=== PATIENT | female | born 1965 | race African-American/Black ===

== ENCOUNTER 2024-10-04 13:29 | Outpatient (AMB) | payer OTHER, SELFPAY ==
[2024-10-04 14:40] VITALS: BMI 21.0
--- NOTE | 2024-10-04 14:40 | A.SPINEOV_ITS ---
Vital Signs 10/04/24 14:40 Height 5 ft 6 in Weight 130 lb BMI 21.0 Intake Visit Reasons: Neck pain usman hand pain and numbness Intake Note: Ms. Becker is here today c/o neck pain and numbness also bilateral hand pain. 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 Allergies acetaminophen [From Vicodin] Allergy (Mild, Verified 10/04/24 14:46) Rash hydrocodone [From Vicodin] Allergy (Mild, Verified 10/04/24 14:46) Rash Penicillins Allergy (Mild, Verified 10/04/24 14:46) Rash Sulfa (Sulfonamide Antibiotics) Allergy (Mild, Verified 10/04/24 14:46) Rash Physical Exam Vital Signs: BMI result Body Mass Index 21.0 Assessment & Plan Assessment & Plan (1) Bilateral cervical radiculopathy: Code(s): M54.12 - Radiculopathy, cervical region Category: Medical Plan Dear colleague Thank you for referring Carmen Becker to the office today with a chief complaint of bilateral arm pain, left more than right.. HPI: This pleasant 59-year-old female is known with cervical radiculopathy for prolonged period of time. Originally, it was always located on the right side. She received corticosteroid injections in the C7 area that would help. In March of 2024 the symptoms became more consistent and moved towards the left side. Specifically, she states that she has radiating pain into the triceps area that then goes to the dorsum of her lower arm into the whole hand. The pain is associated with numbness of the lateral side of the proximal part of the arm. The same symptoms are intermittently present on the right side. As stated, it radiates into her hand but originally it was mostly affected the 4th digit. She denies weakness. Recent injections were no longer successful. Physical therapy was not helpful nor are [id number] medications PMH: Hypertension, repair right clavicular fracture Medications: Losartan Allergies: Sulfa drugs, Demerol, penicillin, Vicodin, naproxen, lisinopril Social history: . Employed. Nonsmoker Physical Exam: Pleasant female. There is hypoesthesia of the lateral part of left upper arm. Motor exam is intact as well as reflexes. No pathological refl exes. Radiological Studies: MRI done at [place] on 09/08/2024 shows multilevel degenerative disc disease and foraminal stenosis. However, the C6-7 level is the only level where there is bilateral severe foraminal stenosis compressing the bilateral C7 nerve roots. Impression/Plan: This patient is suffering from a bilateral C7 radiculopathy that is explained by the bilateral severe C7 foraminal stenosis caused by degenerative disc disease on MRI. Conservative treatment failed and the symptoms are severe enough to undergo a surgical intervention. Therefore I offered her a C6-7 anterior diskectomy and fusion. She is scheduled for December 19, 2024. Thank you for allowing me to participate in your patients care. total time spent was 50 minutes in counseling ,coordination of plan, personal review of imaging, surgical decision making and subsequent plan Jeffrey Yee MD, PhD Spine Fellowship Trained Neurosurgeon Director, [facility] Coding Level of Care Code New Pt Level 4 (00236) Diagnoses Bilateral cervical radiculopathy M54.12
== END 2024-10-04 16:08 | disposition home or self-care (01) ==
PROVIDERS: PCP Internal Medicine; Referring Provider Physician Assistant; Visit Provider Neurological Surgery
DX: M54.12 Radiculopathy, cervical region (principal)
CPT/HCPCS: 99204

== ENCOUNTER → 2024-10-04 13:29 | Outpatient (BNVA) | payer OTHER, SELFPAY | PROVIDERS: PCP Internal Medicine; Referring Provider Physician Assistant; Visit Provider Neurological Surgery ==

== ENCOUNTER 2024-12-19 06:00 | Day surgery (SDC) | payer OTHER, SELFPAY ==
[2024-12-03 10:12] VITALS: BP 142/84; PULSE 84; RESP 18; O2SAT 100; BMI 21.6
--- NOTE | 2024-12-03 10:23 | HO.ANESPROP2 ---
Documented by User: Teresa Parson NP 12/03/24 10:28 HPI - Anesthesia Eval Consult details Narrative: 59yo F for C6-7 Ant Cerv Discectomy w/ fusion, 12/19/24 No recent illness No CP/SOB with regular activity PMFSH Active Problems Active Problems: All Active Problems Bilateral cervical radiculopathy (Acute) Past Medical History Medical History Digestive disorder Cervical radiculopathy Slow transit constipation Polyclonal hypergammaglobulinemia HTN (hypertension) Migraines Surgical History Surgical History History of endometrial ablation History of surgery H/O colonoscopy Social History Social History Are you a primary multi care technician to a significant other at home: No Do you presently have visiting nurse or other home services: No Patient Tobacco Use Status: Never used Tobacco Use of substances other than those prescribed or required for medical reasons: No Have you been hit, kicked, punched, or otherwise hurt by someone within the past year? If so, by whom?: No Spiritual Healthcare Practices: none Catholic Healthcare Practices: Spiritism Cultural Healthcare Practices: none Are you DNR?: Yes Advance Directives Information Provided: Yes (as above noted) Advance Directives on File: No Recently lost weight without trying: No Eating poorly because of decreased appetite: No Nutrition Risks: No Nutritional Risk FDLMP: n/a Poor oral hygiene: No (upper permanent bridges-one each side) Meds Allergies Allergy/AdvReac Type Severity Reaction Status Date / Time bee pollen [bee stings] Allergy Severe Anaphylaxis Verified 12/19/24 06:45 gabapentin [From Neurontin] Allergy Severe severe Verified 12/19/24 06:45 head pain-feeling of electric shock to brain lactose Allergy Severe Gastrointestinal Verified 12/19/24 06:45 Upset onion Allergy Severe acute GI Verified 12/19/24 06:45 pain hydrocodone [From Vicodin] Allergy Intermediate Nausea and Verified 12/19/24 06:45 Vomiting/migraine latex Allergy Intermediate Rash Verified 12/19/24 06:45 lisinopril Allergy Intermediate cough/headache/dry Verified 12/19/24 06:45 mouth meperidine [From Demerol] Allergy Intermediate Nausea and Verified 12/19/24 06:45 Vomiting/migraine oxycodone Allergy Intermediate Nausea and Verified 12/19/24 06:45 Vomiting/migraine Penicillins Allergy Intermediate Rash Verified 12/19/24 06:45 Sulfa (Sulfonamide Allergy Intermediate Rash Verified 12/19/24 06:45 Antibiotics) Home Medications ?Medication ?Instructions ?Recorded ?Confirmed ?Last Taken ?Type epinephrine 0.3 mg/0.3 mL 0.3 mg IM Q10M PRN Anaphylaxis 12/02/24 12/02/24 Unknown History injection, auto-injector (EpiPen) linaclotide 72 mcg capsule 72 mcg PO QAM PRN Constipation 12/02/24 12/02/24 Unknown History (Linzess) losartan 25 mg tablet 25 mg PO QAM 12/02/24 12/03/24 Unknown History omeprazole 20 mg capsule,delayed 20 mg PO QAM 12/02/24 12/03/24 12/19/24 04:00 History release Exam Height,Weight and Vital Signs: Height 5 ft 6 in Weight 60.7 kg Last Vital Signs Pulse 84 12/03/24 10:12 Resp 18 12/03/24 10:12 BP 142/84 H 12/03/24 10:12 Pulse Ox 100 12/03/24 10:12 O2 Del Method Room Air 12/03/24 10:12 Pertinent Lab Results Pertinent Lab Results: CBC and BMP from outside lab 03/2024 Airway Mallampati Class: II TM Dist: >3cm Neck ROM: Limited Loose/Missing/Broken Teeth: No (permanent bridge x 2 upper molars) Heart: RRR Lungs: CTAB Assessment and Plan Assessment Anesthesia Assessment: Anesthesia Plan Discussed and PAT Visit Documented by User: Barb Henderson MD 12/19/24 08:40 PMFSH Past Medical History Medical History Digestive disorder Cervical radiculopathy Slow transit constipation Polyclonal hypergammaglobulinemia HTN (hypertension) Migraines Family History Family history of problems with anesthesia: No Surgical History Surgical History History of endometrial ablation History of surgery H/O colonoscopy History of Problems with Anesthesia: No Social History Social History Are you a primary multi care technician to a significant other at home: No Do you presently have visiting nurse or other home services: No Patient Tobacco Use Status: Never used Tobacco Use of substances other than those prescribed or required for medical reasons: No Have you been hit, kicked, punched, or otherwise hurt by someone within the past year? If so, by whom?: No Spiritual Healthcare Practices: none Catholic Healthcare Practices: Spiritism Cultural Healthcare Practices: none Are you DNR?: Yes Advance Directives Information Provided: Yes (as above noted) Advance Directives on File: No Recently lost weight without trying: No Eating poorly because of decreased appetite: No Nutrition Risks: No Nutritional Risk FDLMP: n/a Poor oral hygiene: No (upper permanent bridges-one each side) Meds Allergies Allergy/AdvReac Type Severity Reaction Status Date / Time bee pollen [bee stings] Allergy Severe Anaphylaxis Verified 12/19/24 06:45 gabapentin [From Neurontin] Allergy Severe severe Verified 12/19/24 06:45 head pain-feeling of electric shock to brain lactose Allergy Severe Gastrointestinal Verified 12/19/24 06:45 Upset onion Allergy Severe acute GI Verified 12/19/24 06:45 pain hydrocodone [From Vicodin] Allergy Intermediate Nausea and Verified 12/19/24 06:45 Vomiting/migraine latex Allergy Intermediate Rash Verified 12/19/24 06:45 lisinopril Allergy Intermediate cough/headache/dry Verified 12/19/24 06:45 mouth meperidine [From Demerol] Allergy Intermediate Nausea and Verified 12/19/24 06:45 Vomiting/migraine oxycodone Allergy Intermediate Nausea and Verified 12/19/24 06:45 Vomiting/migraine Penicillins Allergy Intermediate Rash Verified 12/19/24 06:45 Sulfa (Sulfonamide Allergy Intermediate Rash Verified 12/19/24 06:45 Antibiotics) Home Medications ?Medication ?Instructions ?Recorded ?Confirmed ?Last Taken ?Type epinephrine 0.3 mg/0.3 mL 0.3 mg IM Q10M PRN Anaphylaxis 12/02/24 12/02/24 Unknown History injection, auto-injector (EpiPen) linaclotide 72 mcg capsule 72 mcg PO QAM PRN Constipation 12/02/24 12/02/24 Unknown History (Linzess) losartan 25 mg tablet 25 mg PO QAM 12/02/24 12/03/24 Unknown History omeprazole 20 mg capsule,delayed 20 mg PO QAM 12/02/24 12/03/24 12/19/24 04:00 History release Assessment and Plan Final Anesthetic Review Family History of Problems with Anesthesia: No History of Problems with Anesthesia: No NPO: Yes ASA Class: II Final Preanesthetic Review: No Changes in Pt Med Stat, Meds/Allgs Chart Reviewed, Consent Obtained/Reviewed and Anes Risks/Benef Reviewed Patient Risk: Low Procedure Risk: Low Anesthetic Plan Anesthetic Plan: GA Disposition: Standard PACU
[2024-12-19] VITALS (16 sets, daily range): BP systolic 112–164; BP diastolic 67–89; PULSE 56–74; RESP 12–16; TEMP 36.1–36.5; O2SAT 97–100; BMI 21.4
--- NOTE | ~2024-12-19 | FL_ITS ---
EXAMINATION: XR FLUOROSCOPY WITH IMAGES CLINICAL INFORMATION: C6-7 ACDF. COMPARISON: None available. TECHNIQUE: Fluoroscopy provided to: Dr. Yee Fluoroscopy time: 0.2 minutes DAP: 0.587 Gycm2 Images: 2 FINDINGS: 2 fluoroscopic spot images obtained during ACDF C6-7 with anterior disc prosthesis and oblique endplate screws. No gross complication on these 2 limited images. Refer to the full operative report for detail. FL/FL guidance in OR IMPRESSION: Fluoroscopic guidance. Electronically signed by: Martin Dobbins MD 12/20/2024 09:09 AM [facility]
[2024-12-19] MEDS: methocarbamoL 750 MG TABLET PO (06:22)
[2024-12-19] MEDS: vancomycin HCL 1,000 MG in 0.9 % Sodium Chloride 250 ML 270 MG IV (06:42)
[2024-12-19] MEDS: Lactated Ringers 1,000 ML 100 ML IVCONT (06:43)
--- NOTE | 2024-12-19 07:07 | MHC.SHP ---
Pre-Procedural Eval Section A - 24 Hr Update-Section A only Date of Service: 12/19/24 The patient is an INPATIENT: No Changes since office visit: No Cold of Flu in the past 2 weeks, No New Medical Problems, No Changes in Medication and No Patient answered all questions The patient has been examined within 24 hours of the surgical procedure. The History & Physical has been completed within 30 days and I have reviewed it.: No Section B - Complete if H&P > 30 days Chief Complaint: Radiculopathy, cervical region Allergies: Allergies Allergy/AdvReac Type Severity Reaction Status Date / Time bee pollen [bee stings] Allergy Severe Anaphylaxis Verified 12/19/24 06:45 gabapentin [From Neurontin] Allergy Severe severe Verified 12/19/24 06:45 head pain-feeling of electric shock to brain lactose Allergy Severe Gastrointestinal Verified 12/19/24 06:45 Upset onion Allergy Severe acute GI Verified 12/19/24 06:45 pain hydrocodone [From Vicodin] Allergy Intermediate Nausea and Verified 12/19/24 06:45 Vomiting/migraine latex Allergy Intermediate Rash Verified 12/19/24 06:45 lisinopril Allergy Intermediate cough/headache/dry Verified 12/19/24 06:45 mouth meperidine [From Demerol] Allergy Intermediate Nausea and Verified 12/19/24 06:45 Vomiting/migraine oxycodone Allergy Intermediate Nausea and Verified 12/19/24 06:45 Vomiting/migraine Penicillins Allergy Intermediate Rash Verified 12/19/24 06:45 Sulfa (Sulfonamide Allergy Intermediate Rash Verified 12/19/24 06:45 Antibiotics) Review of Systems Sugical H&P ROS: Negative: Constitution, Cardiovascular, Respiratory, Neurological, Psychiatric, Hem-Onc, Allergic/Immunologic, Gastrointestinal, Genitourinary, Musculoskeletal, Integumentary, Endocrine and Eyes/Ears/Nose/Throat Exam Surgical H&P Exam: Normal: HEENT, Normal: Heart, Normal: Lungs, Normal: Extremities, Normal: Abdomen, Normal: Skin and Normal: Neurological (awake, alert,oriented x 3 ) Plan Diagnosis/Plan: Unchanged C6-7 Anterior cervical diskectomy and fusion Time Spent With Patient Time: Total time managing care of this patient today __5__ minutes.
--- NOTE | 2024-12-19 07:08 | PM.DS ---
DS: Providers Provider Date of Service: 12/19/24 Date of discharge: 12/19/24 Primary care physician: Elin Francois MD Admitting clinician: Jeffrey Yee DS: Diagnosis Discharge Diagnosis (1) Bilateral cervical radiculopathy: Status: Acute DS: Summary Time Attestation Discharge Coordination Time (in mins): 4 Quality: Safe Use of Opioids Does Pt have an Active Cancer Diagnosis on the Problem List?: No Quality: Stroke Does the patient have a stroke diagnosis?: No Physical Exam Vital Signs: Vital Signs: Last Vital Signs Temp 97.7 F 12/19/24 06:20 Pulse 74 12/19/24 06:20 Resp 15 12/19/24 06:20 BP 149/89 H 12/19/24 06:20 Pulse Ox 99 12/19/24 06:20 O2 Del Method Room Air 12/19/24 06:20 BMI result Body Mass Index 21.4 Discharge Plan Discharge Patient Disposition: Home, Self-Care Referrals: Elin Francois MD [Primary Care Provider] - 1 Week Discharge Medications: New tramadol 50 mg tablet 50 mg PO Q8H PRN (Reason: pain) Qty: 20 0RF Continued losartan 25 mg Tablet 25 mg PO QAM omeprazole 20 mg Capsule,Delayed Release(Dr/Ec) 20 mg PO QAM epinephrine [EpiPen] 0.3 mg/0.3 mL Auto-Injector 0.3 mg IM Q10M PRN (Reason: Anaphylaxis) Rx Instructions: for 2 doses Linzess 72 mcg Capsule 72 mcg PO QAM PRN (Reason: Constipation) Discharge Orders: Discharge Order (Routine); Ordered 12/19/24 Ordered By: Boston Chavez Diet: Advance to usual diet Activity on Discharge: As tolerated Activity Restrictions/Additional Instructions: After your spinal surgery we ask you to observe the following restrictions/guidelines: Activity: It is normal to feel some discomfort as you increase your activity, but that will improve with time. We ask you avoid heavy lifting or acitivities that cause pain. As a general rule, 8lbs is a safe limit for lifting right after surgery. Walk as much as you feel comfortable but not to exhaustion. You will feel extra tired the first few days after surgery. Stay well hydrated. It is OK to walk up and down stairs You may return to driving when you are off narcotics (such as vicodin, oxycodone, dilaudid, etc), and you are back to normal functional capacity. If you have any concerns please check with office before driving. Return to work is specific to each patient and each surgery, so please speak with your doctor/PA at first follow up. Please bring paperwork such as FMLA at that time if you need it filled out. Medications: For optimum pain control, it is best to start with a combination of 500 mg of Tylenol every 4 hours with 600 mg of Motrin every 8 hours, and use narcotics as needed in between for breakthrough pain. We will give you a short supply of narcotics after surgery (usually one weeks worth). If you need more please call the office but do not use more than prescribed. You will need to give our office 48 hours notice if you need narcotics refilled and we do not fill narcotics on weekends or evenings. If you are on a narcotic, it is a good idea to take a stool softener such as colace or senna to avoid constipation If you take blood thinner such as aspirin, Plavix, Coumadin, Effient, Eliquis etc for conditions such as Afib, DVT, Pulmonary embolus, coronary disease, stents etc please speak with your surgeon about specific details as to when you can resume these medications. You can resume NSAIDs on post op day 1 (eg: Motrin, Naproxen, etc). Follow up: Please call the office, , after surgery to arrange a 3 week follow up for wound check. Wound Care: You may remove your dressing on the first day after surgery. ?You may ?leave open to air. Please do not remove the steri strips underneath. they will fall off on their own in one week. IT IS NORMAL FOR THE WOUND TO OOZE OR BE BLOODY FOR A FEW DAYS AFTER SURGERY. ?IF THIS HAPPENS JUST PLACE NEW DRESSING OVER IT TO AVOID STAINING CLOTHES. You may shower on post op day # 1 We ask that you do not let the water soak the wound. If it does get wet, just towel dry lightly. Please do not scrub your incision or place any type of chemical/ointment on the wound. No tub baths, pools or jacuzzis for one month. If you have any leaking or redness from your wound, or fevers, please call office Print Language: [place]
[2024-12-19] MEDS: Acetaminophen 1,000 MG/100 ML PIGGYBACK 400 MG IV (07:55)
--- NOTE | 2024-12-19 09:42 | P.OP_ITS ---
Operative Note Operative Note Date of Service: 12/19/24 Narrative: Preoperative Diagnosis: Bilateral cervical radiculopathy] Procedure: C6-7 Anterior discectomy, arthrodesis and implantation cage ; c6-7 anterior instrumentation ; local autograft; microscope Informed Consent was obtained for this operation. I have explained the nature, purpose and benefits of the operation. I have discussed the risks and benefit of the operation including possible complications or adverse events with patient/family. Alternative(s) were discussed with the patient with their relative benefits and risks as well as the consequences of not accepting the operation were included in obtaining consent. Surgeon: BLADIMIR SHEPHERD MD, PHD Procedure Assisted By: Boston Chavez PA-c Description of Procedure: This patient is suffering from bilateral cervical radiculopathy due to C6-7 DDD with bilateral C7 foraminal stenosis. She was offered an ACDF C6-7. The procedure complications were explained. The patient was consented. The patient was brought to the operating room and endotracheally intubated. The patient was put in supine position with slight extension of the neck. Prep and drape was done followed by timeout. A mid cervical incision was made followed by opening of the platysma. The prevertebral fascia was reached following the natural planes while the physician curriculum assistant principal provided manual retraction. The prevertebral fascia was opened to expose the disc space. A spinal needle was placed in the disk space to confirm the correct level with xray. The longus colli muscles were released bilaterally and a self retaining retractor was inserted. Two [place] pins were placed in the C6 and C7 vertebral bodies and distraction was give over the interspace. The discectomy was completed toward the posterior annulus of the disc. The microscope was brought in. The remainder of the discectomy was completed. The posterior ligament was opened and resected to expose the underlying dura. Osteophytes were resected from the body of C6 and C7 and saved for autograft. Bilateral foraminotomies were done. The endplates were prepared after which a 6 mm cage filled with autograft was inserted into the disc space. A separate attached plate was locked down with 2 x 14 mm screws as anterior instrumentation. Final x-rays in AP and lateral projection showed a satisfactory position of the implant. The physician curriculum assistant principal took over. The [place] pin was removed. Hemostasis was done. He closed the incision in 2 layers with a 3-0 Vicryl. Steri-Strips used to approximate incision. An OpSite with Tegaderm was used to cover the incision. All sponge and needle counts were correct. Patient was extubated and transported in stable is to recovery room. Anesthesia: General Estimated Blood Loss (ml): 30 ml Duration of Surgery: 90 min Postoperative Plan: Discharge home Complications: None
[2024-12-19] MEDS: fentaNYL citrate/PF 100 MCG/2 ML VIAL 50 MCG IVPUSH ×2 (10:30→10:45)
== END 2024-12-19 13:00 | disposition home or self-care (01) ==
LOC: HO.SSS 13:32
PROVIDERS: PCP Internal Medicine; Visit Provider Neurological Surgery
PROC: (CPT 22551; principal; 2024-12-19 07:30)
DX: M50.123 Cervical disc disorder at C6-C7 level with radiculopathy (principal); M48.02 Spinal stenosis, cervical region; I10 Essential (primary) hypertension; Z87.81 Personal history of (healed) traumatic fracture; Z88.0 Allergy status to penicillin; Z88.2 Allergy status to sulfonamides; Z88.5 Allergy status to narcotic agent; Z79.899 Other long term (current) drug therapy; Z66 Do not resuscitate
CPT/HCPCS: 22551; 22853; 20936; 22845; C1713; C1889; J0131; J3370

== ENCOUNTER → 2024-12-19 07:30 | Outpatient (BNV) | payer OTHER, SELFPAY | PROVIDERS: PCP Internal Medicine; Visit Provider Physician Assistant | DX: M54.12 Radiculopathy, cervical region (principal) | CPT/HCPCS: 22551; 22845; 22853; 99499 ==

== ENCOUNTER 2025-01-09 13:42 | Outpatient (AMB) | payer OTHER, SELFPAY ==
--- NOTE | 2025-01-09 13:43 | A.SPINEOV_ITS ---
Intake Visit Reasons: 1st post op Intake Note: Ms. Becker is here today for her 1st post op. It Investment/Portfolio Manager Required: No Allergies bee pollen [bee stings] Allergy (Severe, Verified 12/19/24 06:45) Anaphylaxis gabapentin [From Neurontin] Allergy (Severe, Verified 12/19/24 06:45) severe head pain-feeling of electric shock to brain lactose Allergy (Severe, Verified 12/19/24 06:45) Gastrointestinal Upset onion Allergy (Severe, Verified 12/19/24 06:45) acute GI pain hydrocodone [From Vicodin] Allergy (Intermediate, Verified 12/19/24 06:45) Nausea and Vomiting/migraine latex Allergy (Intermediate, Verified 12/19/24 06:45) Rash lisinopril Allergy (Intermediate, Verified 12/19/24 06:45) cough/headache/dry mouth meperidine [From Demerol] Allergy (Intermediate, Verified 12/19/24 06:45) Nausea and Vomiting/migraine oxycodone Allergy (Intermediate, Verified 12/19/24 06:45) Nausea and Vomiting/migraine Penicillins Allergy (Intermediate, Verified 12/19/24 06:45) Rash Sulfa (Sulfonamide Antibiotics) Allergy (Intermediate, Verified 12/19/24 06:45) Rash Assessment & Plan Assessment & Plan (1) Bilateral cervical radiculopathy: Code(s): M54.12 - Radiculopathy, cervical region Category: Medical Plan MRs Becker is 3 weeks out from her ACDF C6-7. She has pleased with how she did after surgery. Her bilateral arm pain is gone. She is still dealing with some stiffness on the left side of her neck and some pain running across her trapezius. Her wound is healing up beautifully. I got a set of x-rays today and these show excellent position of the hardware. We discussed activity guidelines, restrictions and expectations after ACDF. I will see the patient back in 6 weeks for final postoperative visit. Boston Yee MD, PhD [facility] Orders: Orders XR cervical spine 4V Today M54.12 - Radiculopathy, cervical region Coding Level of Care Code Global (01180) Diagnoses Bilateral cervical radiculopathy M54.12
== END 2025-01-09 15:01 | disposition home or self-care (01) ==
LOC: HO.HNS 13:42
PROVIDERS: PCP Internal Medicine; Visit Provider Physician Assistant
DX: M54.12 Radiculopathy, cervical region (principal)
CPT/HCPCS: 99024

== ENCOUNTER 2025-01-09 13:42 | Outpatient (REF) | payer OTHER, SELFPAY ==
--- NOTE | ~2025-01-09 | XR_ITS ---
EXAMINATION: XR CERVICAL SPINE 4-5 VIEWS HISTORY: M54.12 - Radiculopathy, cervical region COMPARISON: There are no prior studies for comparison. FINDINGS: AP, and neutral, flexion, and extension lateral views of the cervical spine are submitted. Osseous mineralization is normal. The patient is status post anterior cervical disc fusion at C6-7. There is slight anterolisthesis of C4 on C5 and slight retrolisthesis of C5 on C6, without significant change with flexion or extension. There is moderate degenerative disc disease with disc space narrowing and osteophyte formation. There is no prevertebral soft tissue swelling. XR/XR cervical spine 4V IMPRESSION: Status post anterior cervical disc fusion at C6-7. Moderate degenerative disc disease. No significant change in slight anterolisthesis of C4 on C5 or slight retrolisthesis of C5 on C6 with flexion or extension. Electronically signed by: Keenan Abernathy MD 01/09/2025 03:45 PM EDT
== END 2025-01-09 13:43 | disposition home or self-care (01) ==
LOC: HO.HOSX 13:42
PROVIDERS: PCP Internal Medicine; Visit Provider Physician Assistant
DX: M54.12 Radiculopathy, cervical region (principal); Z98.1 Arthrodesis status
CPT/HCPCS: 72050

== ENCOUNTER → 2025-01-09 14:07 | Outpatient (BNV) | payer OTHER, SELFPAY | PROVIDERS: PCP Internal Medicine; Visit Provider Radiology Diagnostic Radiology | DX: M50.323 Other cervical disc degeneration at C6-C7 level (principal) | CPT/HCPCS: 72050 ==

== ENCOUNTER 2025-02-24 13:35 | Outpatient (AMB) | payer OTHER, SELFPAY ==
--- NOTE | 2025-02-24 13:46 | A.SPINEOV_ITS ---
Intake Visit Reasons: 2nd post op Intake Note: Ms. Becker is here today for her 2nd post op. 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 Allergies bee pollen [bee stings] Allergy (Severe, Verified 02/24/25 13:47) Anaphylaxis gabapentin [From Neurontin] Allergy (Severe, Verified 02/24/25 13:47) severe head pain-feeling of electric shock to brain lactose Allergy (Severe, Verified 02/24/25 13:47) Gastrointestinal Upset onion Allergy (Severe, Verified 02/24/25 13:47) acute GI pain hydrocodone [From Vicodin] Allergy (Intermediate, Verified 02/24/25 13:47) Nausea and Vomiting/migraine latex Allergy (Intermediate, Verified 02/24/25 13:47) Rash lisinopril Allergy (Intermediate, Verified 02/24/25 13:47) cough/headache/dry mouth meperidine [From Demerol] Allergy (Intermediate, Verified 02/24/25 13:47) Nausea and Vomiting/migraine oxycodone Allergy (Intermediate, Verified 02/24/25 13:47) Nausea and Vomiting/migraine Penicillins Allergy (Intermediate, Verified 02/24/25 13:47) Rash Sulfa (Sulfonamide Antibiotics) Allergy (Intermediate, Verified 02/24/25 13:47) Rash Assessment & Plan Assessment & Plan (1) Bilateral cervical radiculopathy: Code(s): M54.12 - Radiculopathy, cervical region Category: Medical Plan Mrs Becker is here in follow-up. She is a little under 2 months out from her ACDF C6-7. As she has gotten more active she has had some recurrence of the arm pain on the right side in some of the neck stiffness. Overall though things have been going fairly well in her recovery. I reassured her a lot of these things can be normal. We discussed activity guidelines, restrictions and expectations after ACDF. At this point I do not have any specific restrictions for her, she can resume activities as tolerated and see us back if there are any problems down the road. Boston Yee MD, PhD [facility] Coding Level of Care Code Global (44855) Diagnoses Bilateral cervical radiculopathy M54.12
== END 2025-02-24 14:29 | disposition home or self-care (01) ==
LOC: HO.HNS 13:36
PROVIDERS: PCP Internal Medicine; Visit Provider Physician Assistant
DX: M54.12 Radiculopathy, cervical region (principal)
CPT/HCPCS: 99024